=== PATIENT | female | born 1995 | race Caucasian/White ===

== ENCOUNTER 2016-05-21 09:50 | Inpatient (IN) ==
[2016-05-21] MEDS ORDERED: PITOCIN 30 UNITS/LR 30 UNITS/500 ML IV.SOLN IV SCH (19:24)
[2016-05-21] MEDS ORDERED: AMBIEN PO PRN (19:24)
[2016-05-21] MEDS ORDERED: STADOL IV PRN ×2 (19:24)
[2016-05-21] MEDS ORDERED: PEPCID IV PRN (19:24)
[2016-05-21] MEDS ORDERED: REGLAN PO ONE (19:24)
[2016-05-21] MEDS ORDERED: AMPICILLIN 2 GM/NS 2 GM/100 ML IVPB IV ONE (19:24)
[2016-05-21] MEDS ORDERED: ZOFRAN IV PRN (19:24)
[2016-05-21] MEDS ORDERED: BRETHINE SUBQ PRN (19:24)
[2016-05-21] MEDS ORDERED: PEPCID PO ONE (19:24)
[2016-05-21] MEDS ORDERED: TYLENOL PO PRN (19:24)
[2016-05-21] MEDS ORDERED: KEFZOL 1 GM/D5W 1 GM/50 ML IVPB IV PRN (19:24)
[2016-05-21] MEDS ORDERED: PEPCID PO PRN (19:24)
[2016-05-21] MEDS: LR 1,000 ML IV ONE (20:30)
[2016-05-21 21:23] LABS: MANUAL DIFF NEEDED? NO
[2016-05-21 22:00] LABS: EOS# 0.04 X1000 (0.0-0.7); EOS% 0.3 % (0.0-10.0); HEMATOCRIT 32.4 % (37.0-47.0); HEMOGLOBIN 10.6 g/dL (12.0-16.0); IMM GRAN# 0.03 X1000 (0.0-0.04); IMM GRAN% 0.3 % (0.0-0.5); LYMPH# 2.09 X1000 (1.2-3.4); LYMPH% 18.1 % (20.5-51.1); MCH 27.4 PG (27-31); MCHC 32.7 g/dL (33-37); MCV 83.7 FL (81-99); MONO# 0.98 X1000 (0.11-0.59); MONO% 8.5 % (1.7-9.3); MPV 10.4 FL (7.4-10.4); NEUT% 72.8 % (42.2-75.2); PLT 324 X1000 (130-400); RBC 3.87 XMIL (4.2-5.4)
[2016-05-21] MEDS ORDERED: CYTOTEC PO ONE (23:00)
[2016-05-22] MEDS: AMPICILLIN 1 GM/NS 1 GM/50 ML IVPB IV SCH ×2 (00:55→04:31)
[2016-05-22] MEDS: CYTOTEC PO SCH ×2 (03:16→21:03)
[2016-05-22] MEDS: STADOL IV PRN ×2 (04:30→11:45)
[2016-05-22] MEDS ORDERED: FENTANYL-BUPIV-NS 2 MCG-0.1% 200 ML EPIDURAL PRN (07:19)
[2016-05-22] MEDS: LR 1,000 ML IV ONE ×2 (07:21→10:04)
[2016-05-22] MEDS ORDERED: MARCAINE 0.25% PF INJ ONE (07:30)
[2016-05-22] MEDS ORDERED: FENTANYL ONE (09:59)
[2016-05-22] MEDS: NESACAINE-MPF 3% ONE (10:01)
[2016-05-22] MEDS ORDERED: LR 0 ML ONE (10:15)
[2016-05-22] MEDS ORDERED: MINERAL OIL ONE ×2 (10:33→10:34)
[2016-05-22] MEDS ORDERED: XYLOCAINE-MPF 1% ONE (10:33)
[2016-05-22] MEDS ORDERED: PITOCIN 20 UNITS/LR 20 UNITS/1,000 ML IV.SOLN ONE (12:13)
[2016-05-22] MEDS ORDERED: AMBIEN PO PRN (12:34)
[2016-05-22] MEDS ORDERED: HYDROXYZINE IM PRN (12:34)
[2016-05-22] MEDS ORDERED: M-M-R II VACCINE SUBQ ONE (12:34)
[2016-05-22] MEDS ORDERED: PERCOCET-5 PO PRN (12:34)
[2016-05-22] MEDS ORDERED: BENADRYL PO PRN (12:34)
[2016-05-22] MEDS ORDERED: NORCO-5 PO PRN (12:34)
[2016-05-22] MEDS ORDERED: BENADRYL IV PRN (12:34)
[2016-05-22] MEDS ORDERED: CYTOTEC PO PRN (12:34)
[2016-05-22] MEDS ORDERED: XYLOCAINE-MPF 1% INJ PRN (12:34)
[2016-05-22] MEDS ORDERED: PITOCIN 20 UNITS/LR 20 UNITS/1,000 ML IV.SOLN IV SCH (12:34)
[2016-05-22] MEDS ORDERED: BOOSTRIX VACCINE IM ONE (12:34)
[2016-05-22] MEDS ORDERED: HYDROXYZINE PO PRN (12:34)
[2016-05-22] MEDS ORDERED: MINERAL OIL PO PRN (12:34)
[2016-05-22] MEDS ORDERED: NORCO-10 PO PRN (12:34)
[2016-05-22] MEDS ORDERED: PITOCIN 30 UNITS/LR 30 UNITS/500 ML IV.SOLN IV ONE (12:34)
[2016-05-22] MEDS ORDERED: PITOCIN IM PRN (12:34)
--- NOTE | 2016-05-22 12:47 | OPERATIVE NOTE ---
PROCEDURE DATE: 05/22/2016 DELIVERY PHYSICIAN: Willis Villatoro MD TYPE OF DELIVERY: Spontaneous controlled vaginal delivery. ANESTHESIA: Epidural, IV sedation, and local. FINDINGS: At 11:36, a 6 pound 3 ounce female was delivered in occiput anterior presentation. There was a nuchal cord x1. Apgars are 9 at 1 minute and 10 at 5 minutes. SUMMARY: Yessica Reis is a 20-year-old primigravida at term gestation. Her blood type is O positive. Rubella immune. Hepatitis B surface antigen, HIV, urine negative. Group B strep was positive. The patient was brought into labor and delivery last night to begin induction of labor and to began group B strep antibiotics. She received Cytotec. She received 2 doses of ampicillin. This morning, she was 1-2 cm dilated, membranes were ruptured. IV Pitocin was begun. She received an epidural with incomplete pain relief, she progressed to labor rapidly without signs of distress or dystocia. She became complete, and after approximately an hour of pushing, was . At that point, she was placed in dorsal lithotomy position. Perineum was prepped and draped in the usual sterile fashion. Spontaneous controlled vaginal delivery occurred. Once the 's head was delivered, the oropharynx was bulb suctioned. The shoulders and body delivered without complications. Cord was clamped and cut after nuchal cord was reduced. The was handed to the nurses for further care and evaluation. Cord blood was obtained. Placenta was spontaneously delivered and was intact. The patient was quite uncomfortable at this point. She received IV sedation and then local anesthetic and a second-degree midline tear was repaired in layers using 2-0 Vicryl suture. Blood loss approximately 200 mL. There were no complications. The patient remained in the LDR recovering without difficulty. cc: Willis Villatoro MD
[2016-05-22] MEDS: MOTRIN PO PRN (15:16)
[2016-05-22] MEDS: PERI MEDS (DERMOPLAST/NUPERCAINAL/TUCKS) MISC PRN (17:17)
[2016-05-22] MEDS: PERCOCET-10 PO PRN (20:24)
[2016-05-22] MEDS: PERICOLACE PO SCH (20:24)
[2016-05-23] MEDS: MOTRIN PO PRN ×3 (02:06→23:36)
[2016-05-23] MEDS: PERCOCET-10 PO PRN ×5 (02:06→23:36)
[2016-05-23 05:57] LABS: HEMATOCRIT 29.4 % (37.0-47.0); HEMOGLOBIN 9.3 g/dL (12.0-16.0); MCHC 31.6 g/dL (33-37); MCV 85.2 FL (81-99); MPV 10.2 FL (7.4-10.4); RBC 3.45 XMIL (4.2-5.4)
[2016-05-23] MEDS: PROTONIX PO SCH (09:11)
[2016-05-23] MEDS: PRECARE PO SCH (09:11)
[2016-05-23] MEDS: PERICOLACE PO SCH (20:42)
[2016-05-24 08:07] VITALS: BP 126/69
[2016-05-24] MEDS: PRECARE PO SCH (08:46)
[2016-05-24] MEDS: PROTONIX PO SCH (08:46)
[2016-05-24] MEDS: PERI MEDS (DERMOPLAST/NUPERCAINAL/TUCKS) MISC PRN (09:13)
[2016-05-24] MEDS: MOTRIN PO PRN (10:44)
[2016-05-24] MEDS: PERCOCET-10 PO PRN (10:44)
== END 2016-05-24 12:35 | disposition home or self-care (01) ==
LOC: P.LD 19:19
PROVIDERS: ADMIT Obstetrics & Gynecology; ATTEND Obstetrics & Gynecology